=== PATIENT | male | born 1950 | race Caucasian/White ===

== ENCOUNTER 2017-12-13 09:44 | Day surgery (SDC) | payer MEDICARE, OTHER ==
[~2017-12-13 09:44] MED LIST: RINGER'S SOLUTION,LACTATED 1,000 ML IV PRN
[2017-12-13] MEDS ORDERED: RINGER'S SOLUTION,LACTATED 1,000 ML IV ONE (10:09)
[2017-12-13] MEDS ORDERED: RINGER'S SOLUTION,LACTATED 1,000 ML IV PRN (11:31)
[2017-12-13 12:37] VITALS: BP 134/88
--- NOTE | 2017-12-14 17:05 | OR ---
Operative Report - Dictated Report Narrative: OPERATIVE REPORT DATE OF OPERATION: 12/13/2017 PREOPERATIVE DIAGNOSIS: No recent dedicated colon studies POSTOPERATIVE DIAGNOSIS: 0.5cm polyp at the hepatic flexure, 3 mm polyp at 130 cm (pathology pending) OPERATION: Colonoscopy with snare polypectomy at the hepatic flexure and hot biopsy forceps polypectomy at 130 cm SURGEON: Cresencio Patterson MD ANESTHESIA: MARCY Jones CRNA INDICATIONS FOR PROCEDURE: The patient is a 67-year-old male referred by Dr. Tavares. He had a normal colonoscopy in 2005. There is no family history of colon cancer. The patient is currently asymptomatic. FINDINGS: 0.5 cm polyp at the hepatic flexure and 3 mm polyp at 130 cm, redundant colon otherwise normal exam to the cecum NARRATIVE OF PROCEDURE: The patient was identified in the holding area, and prior to the administration of anesthetic, a multidisciplinary timeout was observed. With the patient in the left lateral position and after the administration of intravenous sedation, the perineum was inspected. There was no evidence of pilonidal disease or skin breakdown. The external appearance of the anus was normal. Sphincter tone was good. The flexible fiberoptic colonoscope was inserted into the rectum which was insufflated with air. The rectal mucosa and submucosal vascular pattern appeared normal, the prep was seen to be complete. The scope was advanced through the sigmoid colon, up the descending colon, and around the splenic flexure where the triangular haustral architecture of the transverse colon was seen. The scope was advanced across the transverse colon to the hepatic flexure where a 0.5 cm polyp was encountered. This was biopsied and then removed with cautery snare. The area appeared complete and hemostatic. The scope was advanced to the cecum, where the confluence of tenia and the ileocecal valve were identified. The mucosa at this level appeared normal. The scope was then slowly withdrawn in a circular fashion so that all aspects of colonic mucosa were inspected. Another 3 mm area of polypoid change was encountered at 130 cm just distal to the hepatic flexure. This was biopsied and entirely destroyed with electrocautery. The site appeared complete and hemostatic. The colon was redundant in course but relatively normal in caliber requiring the use of standard reduction maneuvers to reach the cecum. The haustral architecture appeared well preserved throughout with no evidence of external compression. The mucosa and submucosal vascular pattern appeared normal, specifically there was no gross evidence to suggest colitis or inflammatory bowel disease and no AV malformations were seen. No omer diverticular disease was demonstrated. No additional polyps were encountered. The scope was gradually withdrawn to the level of the rectum. As much insufflated air as possible was removed. The scope was withdrawn from the patient and the procedure terminated. The patient tolerated the anesthetic and procedure well without complication and was transferred back to the ambulatory surgery area awake and in stable condition. The patient remained stable throughout a period of postoperative observation. He denied abdominal discomfort, was able to tolerate by mouth intake, and was up without assistance. I shared the operative findings with the patient and he was given copies of the photographs which appear in the medical record. He was discharged home with instructions not to engage in hazardous activity today, but may resume normal activity tomorrow, and advance diet as tolerated. He is to continue those medications as listed in the history and physical exam. I made arrangements to contact him with the biopsy reports and will make additional recommendations for treatment and follow-up based upon those results. ADDENDUM: Pathology revealed both polyps to be Tubular Adenomas RECOMMENDATION: Colon surveillance in 5 years depending upon findings and symptoms Reviewed and electronically signed
== END 2017-12-13 09:45 | disposition home or self-care (01) ==
LOC: AMB 09:44
PROVIDERS: ATTEND Surgery
PROC: 0D5L8ZZ Destruction of Transverse Colon, Via Natural or Artificial Opening Endoscopic (ICD-10-PCS; principal; 2017-12-13)
PROC: 0DBL8ZX Excision of Transverse Colon, Via Natural or Artificial Opening Endoscopic, Diagnostic (ICD-10-PCS; 2017-12-13)
DX: Z12.11 Encounter for screening for malignant neoplasm of colon (principal); D12.3 Benign neoplasm of transverse colon; I10 Essential (primary) hypertension; E78.5 Hyperlipidemia, unspecified; K21.9 Gastro-esophageal reflux disease without esophagitis; Z68.29 Body mass index [BMI] 29.0-29.9, adult

== ENCOUNTER 2017-12-23 12:43 | Emergency (ER) | payer MEDICARE, OTHER ==
--- NOTE | 2017-12-23 13:28 | ERNOTE ---
Headache ER HPI - General Presenting Symptoms: facial pain Time Seen by Provider: 12/23/17 13:09 Source: patient Exam Limitations: no limitations - Immun/Allergies/Home Medications Immunizations: IMMUNIZATION HX Immunizations Up to Date Yes History of Influenza Vaccine Yes Hx Pneumococcal Vaccination Yes Allergies/Adverse Reactions: Allergies clarithromycin [From Biaxin] Allergy (Unknown, Verified 12/23/17 13:07) Home Medications: HOME MEDICATIONS Aspirin [Aspirin Enteric Coated] 81 mg PO DAILY 12/09/17 [Last Taken Unknown] Metoprolol Succinate [Toprol Xl] 100 mg PO DAILY 12/09/17 [Last Taken 12/12/17 21:00] Sildenafil Citrate [Viagra] 100 mg PO DAILY PRN 12/09/17 [Last Taken Unknown] Simvastatin [Zocor] 20 mg PO HS 12/09/17 [Last Taken Unknown] Amox Tr/Potassium Clavulanate [Augmentin 875-125 Tablet] 875 mg PO Q12H #28 tab 12/23/17 [Last Taken Unknown] - History of Present Illness Narrative: Patient presents to the ED for facial pain and generally elevated blood pressures. He tells me that he thinks he has sinusitis. He relates frontal and maxillary pain bilaterally that he has had before with sinusitis. He has a recent URI with cough that has resolved but his sinuses have been bothering since then, 5 dyas. He also relates his BP has been high at home. He sees Dr Tavares who has recently increased his BP meds. No vision changes, no temporal pain, no N/T/W, no CP or SOB. Timing of Headache: gradual, other - not worst SILVERIO of life. No true SILVERIO, all frontal and maxillary. Has nasal congestion with this. Context Headache: Absent: CO exposure Quality: Present: pressure Severity Maximum: Present: moderate Modifying Factors - (Worsens): Reports: other - percussion of sinuses Associated Symptoms: Reports: nasal congestion, facial pain. Denies: fever/ chills, vomiting, fatigue, weakness, numbness/tingling, vision changes, confusion, dizziness, loss of consciousness, neck pain/stiffness Prior Treament: Denies: recently hospitalized Review of Systems - Review of Systems Constitutional: Absent: fever EYE: Absent: vision changes ENT: Present: See HPI Respiratory: Absent: shortness of breath Cardiology: Absent: chest pain Gastrointestinal/Abdominal: Absent: abdominal pain Genitourinary: Absent: dysuria Musculoskeletal: Present: no symptoms reported Skin: Absent: rash Neurological: Present: See HPI. Absent: weakness - Patient's Past Medical History Patient History - Medical: GERD, Kidney stone, Other Patient History - Cardiac/Respiratory: Hypertension, Hyperlipidemia Patient History - Cancer: No Hx of Cancer Patient History - Surgical Procedures: Colonoscopy, Vasectomy Patient History - Other: None - Family History Father Family History - Medical: , No pertinent hx Family History - Cardiac/Respiratory: Coronary Heart Disease, Myocardial Infarction Family History - Cancer: No pertinent family hx Mother Family History - Medical: No pertinent hx Family History - Cardiac/Respiratory: CHF, Hypertension, Hyperlipidemia Family History - Cancer: No pertinent family hx - Social History Living Situations: home Abuse History: No History of abuse Psych History: No pertinent hx Smoking Status: Never smoker Alcohol Use: none Drug Use: none - Immunizations Immunizations Up to Date: Yes Hx Pneumococcal Vaccination: Yes History of Influenza Vaccine: Yes Physical Exam - Physical Exam General Appearance: Present: alert, no apparent distress Head Exam: Present: normal inspection, no evidence of injury, other - no temporal artery tenderness Eye Exam: Normal inspection: bilateral, PERRL: bilateral Ears, Nose, Throat: Present: nasal congestion, sinus pain/drainage, other - Sx reproduced with percussion of the frontal and maxillary sinuses. Absent: pharyngeal erythema, pharyngeal swelling, tonsillar exudate, tonsillar swelling , dry mucous membranes Neck: Present: normal inspection, nontender, other - no meningeal sings Respiratory: Present: no respiratory distress, normal breath sounds, no accessory muscle use, lungs clear Cardiovascular/Chest: Present: regular rate, rhythm, normal peripheral pulses Gastrointestinal/Abdominal: Present: normal bowel sounds, nontender, nondistended, soft Back Exam: Present: normal range of motion Extremity Exam: Present: normal inspection Neurological Exam: Present: alert, normal mood/affect, no motor/sensory deficits , 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 Absent: facial droop, motor weakness Skin Exam: Present: normal color, warm/dry ED Progress - Vital Signs Patient's Vital Signs:: I have reviewed the patient's vital signs. Vital Signs: Vital Signs 12/23/17 12/23/17 12:59 13:17 Temperature 36.1 C L 36.1 C L Pulse Rate 60 60 Respiratory 16 16 Rate Blood Pressure 141/87 141/87 O2 Sat by Pulse 96 96 Oximetry - CT/Ultrasound CT/Ultrasound Narrative: I reviewed official radiology head CT report - Progress/Reassessment Chief Complaint: Headache Progress Note-Subjective: 12/23/17 14:23 Patient has clinical sinusitis as etiolgy of Sx. Confirmed with CT. No other findings of stroke, temporal arteritis, hypertensive emergency/urgency or other acute life or limb threat. He feels like going home. I discussed warning signs and reasons to return as well as the need for close f/u. Departure Clinical Impression: Sinusitis - Departure Disposition: Home self-care Condition: Stable Instructions: Sinusitis, Adult, [id number] Additional Instructions: Rest. Fluids. Keep your appointment with Dr Tavares Wednesday. Keep a close eye on your blood pressures. Return for fever, weakness, vision changes or if your condition worsens or changes in any way. Referrals: Chet Tavares DO [Primary Care Provider] - Prescriptions: Amox Tr/Potassium Clavulanate [Augmentin 875-125 Tablet] 875 mg PO Q12H #28 tab
[2017-12-23 14:43] VITALS: BP 142/91
== END 2017-12-23 14:42 | disposition home or self-care (01) ==
LOC: ER 12:43
DX: J32.9 Chronic sinusitis, unspecified (principal)